=== PATIENT | female | born 1955 | race African-American/Black ===

== ENCOUNTER 2018-04-04 13:00 | Observation (INO) ==
[2018-04-04] MEDS ORDERED: PANTOPRAZOLE 40 MG VIAL IV STA (13:29)
[2018-04-04 13:46] LABS: Basophils % 0.3 % (0.0-0.8); Eosinophils # 0.5 10*3/uL (0.0-0.87); Eosinophils % 7.8 % (0.00-10.9); Hematocrit 41.7 VOL% (35.7-47.0); Hemoglobin 14.1 GM/DL (12.0-16.0); Immature Granulocytes % 0.5 %; Immature Granulocytes Absolute 0.03 #; Lymphocytes # 1.8 10*3/uL (1.4-4.0); Lymphocytes % 28.5 % (21.3-54.2); Mean Corpuscular HGB Conc 33.8 GM/DL (32-36); Mean Corpuscular Hemoglobin 31 PG (27-34); Mean Platelet Volume 10.4 FL (9.6-12.0); Monocytes # 0.6 10*3/uL (0.11-0.8); Monocytes % 9.9 % (1.7-12.7); Neutrophils # 3.4 10*3/uL (1.4-7.4); Platelet Count 186 T/CUMM (130-400); Red Blood Count 4.58 MC/CUMM (3.8-5.5); Red Cell Distribution Width 13.7 % (9.3-17.3); White Blood Count 6.5 T/CUMM (4-12)
[2018-04-04 13:48] LABS: INR 1.1; PT Patient Result 11.4 SECS; Partial Thromboplastin Time 25.9 SECS (0-40)
[2018-04-04 13:59] LABS: Albumin 3.5 G/DL (3.4-5.0); Bilirubin,Total 0.4 MG/DL (0.2-1.0); Calcium 8.5 MG/DL (8.5-10.1); Osmolality,Calculated 279.3 MOS/KG (273-304); Potassium 3.2 MMOL/L (3.5-5.1); Total Protein 7.6 G/DL (6.4-8.3)
[2018-04-04 14:18] LABS: Platelet Estimate Adequate
[2018-04-04] MEDS ORDERED: PROMETHAZINE 25 MG/1 ML VIAL IM PRN (15:43)
[2018-04-04] MEDS ORDERED: ONDANSETRON 4 MG/2 ML VIAL IV PRN (15:43)
[2018-04-04] MEDS ORDERED: POTASSIUM CHLORIDE RIDER 10 MEQ in PREMIX 1 EACH IV PRN (15:48)
[2018-04-04] MEDS ORDERED: MAGNESIUM SULF RIDER 2 GM in PREMIX 1 EACH IV ONE (16:49)
[2018-04-04] MEDS: POTASSIUM CHLORIDE 20 MEQ TABLET PO PRN ×3 (17:11→23:09)
[2018-04-04] MEDS: SODIUM CHLORIDE 0.9% 1,000 ML IV SCH (17:13)
[2018-04-04 21:58] LABS: Hematocrit 39.7 VOL% (35.7-47.0); Hemoglobin 13.4 GM/DL (12.0-16.0)
[2018-04-04] MEDS: traMADol 50 MG TABLET PO SCH (23:09)
[2018-04-04] MEDS: MECLIZINE 25 MG TABLET PO SCH (23:09)
[2018-04-04] MEDS: SIMVASTATIN 20 MG TABLET PO SCH (23:10)
[2018-04-04] MEDS: PANTOPRAZOLE 40 MG VIAL IV SCH (23:10)
[2018-04-05 05:55] LABS: Hematocrit 39.3 VOL% (35.7-47.0); Hemoglobin 12.8 GM/DL (12.0-16.0); Lymphocytes % 32.6 % (21.3-54.2); Mean Corpuscular HGB Conc 32.6 GM/DL (32-36); Mean Corpuscular Hemoglobin 30 PG (27-34); Mean Platelet Volume 10.4 FL (9.6-12.0); Neutrophils % 46.2 % (38.7-73.9); Platelet Count 275 T/CUMM (130-400); Red Blood Count 4.27 MC/CUMM (3.8-5.5); Red Cell Distribution Width 13.9 % (9.3-17.3); White Blood Count 5.6 T/CUMM (4-12)
[2018-04-05 05:56] LABS: Basophils % 0.7 % (0.0-0.8); Eosinophils # 0.5 10*3/uL (0.0-0.87); Eosinophils % 8.8 % (0.00-10.9); Immature Granulocytes % 0.4 %; Immature Granulocytes Absolute 0.02 #; Lymphocytes # 1.8 10*3/uL (1.4-4.0); Monocytes # 0.6 10*3/uL (0.11-0.8); Monocytes % 11.3 % (1.7-12.7); Neutrophils # 2.6 10*3/uL (1.4-7.4)
[2018-04-05 05:58] LABS: Hematocrit 38.7 VOL% (35.7-47.0); Hemoglobin 12.9 GM/DL (12.0-16.0)
[2018-04-05 06:41] LABS: Albumin 3.2 G/DL (3.4-5.0); Bilirubin,Total 0.6 MG/DL (0.2-1.0); Calcium 8.2 MG/DL (8.5-10.1); Osmolality,Calculated 281.1 MOS/KG (273-304); Potassium 3.4 MMOL/L (3.5-5.1); Thyroid Stimulating Hormone 0.232 uIU/ml (0.358-3.74)
[2018-04-05] MEDS ORDERED: amLODIPine 5 MG TABLET PO SCH (09:00)
[2018-04-05 09:31] LABS: Apearance,Urine CLEAR (Clear); Bacteria,Urine Moderate /HPF (Few); Bilirubin,Urine Negative (Negative); Blood, Urine Negative (Negative); Glucose,Urine (UA) Negative (Negative); Ketones,Urine Negative (Negative); Mucus,Urine Occasional /LPF (Occasional); Nitrite,Urine Negative (Negative); Protein,Urine Negative; RBC,Urine <1 /HPF (0-4); Squamous Epithelial Cell,Urine Occasional /HPF (0-10); Urine Color Yellow (Yellow); Urine Specific Gravity 1.016 (1.001-1.035); Urine Urobilinogen < 2.0 EU/DL (0.2-1.0); WBC,Urine 1 /HPF (0-6)
[2018-04-05] MEDS: MECLIZINE 25 MG TABLET PO SCH ×3 (09:51→21:39)
[2018-04-05] MEDS: CHLORTHALIDONE 25 MG TABLET PO SCH (09:52)
[2018-04-05] MEDS: POTASSIUM CHLORIDE 10 MEQ TABLET PO SCH (09:52)
[2018-04-05] MEDS: traMADol 50 MG TABLET PO SCH ×2 (09:52→21:39)
[2018-04-05] MEDS: PANTOPRAZOLE 40 MG VIAL IV SCH ×2 (09:52→21:38)
[2018-04-05] MEDS: ATENOLOL 50 MG TABLET PO SCH (09:52)
[2018-04-05 10:28] LABS: Hematocrit 38.7 VOL% (35.7-47.0); Hemoglobin 12.7 GM/DL (12.0-16.0)
[2018-04-05] MEDS: POTASSIUM CHLORIDE 20 MEQ TABLET PO PRN ×2 (11:29→13:59)
[2018-04-05] MEDS: SODIUM CHLORIDE 0.9% 1,000 ML IV SCH (13:56)
[2018-04-05 15:35] LABS: Hematocrit 39.4 VOL% (35.7-47.0); Hemoglobin 12.8 GM/DL (12.0-16.0)
[2018-04-05 21:11] LABS: Hemoglobin 12.5 GM/DL (12.0-16.0)
[2018-04-05] MEDS: amLODIPine 5 MG TABLET PO SCH (21:39)
[2018-04-05] MEDS: SIMVASTATIN 20 MG TABLET PO SCH (21:39)
[2018-04-06] MEDS ORDERED: PROPOFOL 200 MG/20 ML VIAL IV ONE (10:00)
[2018-04-06] MEDS ORDERED: LIDOCAINE 100 MG/5 ML SYRINGE ONE (10:00)
[2018-04-06] MEDS ORDERED: BISACODYL 5 MG TABLET PO ONE (12:00)
[2018-04-06] MEDS: PANTOPRAZOLE 40 MG VIAL IV SCH ×2 (14:17→21:57)
[2018-04-06] MEDS: CHLORTHALIDONE 25 MG TABLET PO SCH (14:18)
[2018-04-06] MEDS: MECLIZINE 25 MG TABLET PO SCH ×3 (14:18→21:57)
[2018-04-06] MEDS: traMADol 50 MG TABLET PO SCH ×2 (14:19→21:57)
[2018-04-06] MEDS: POTASSIUM CHLORIDE 10 MEQ TABLET PO SCH (14:19)
[2018-04-06] MEDS: ATENOLOL 50 MG TABLET PO SCH (14:19)
[2018-04-06] MEDS: amLODIPine 5 MG TABLET PO SCH ×2 (14:19→21:57)
[2018-04-06] MEDS ORDERED: POLYETHYLENE GLYCOL POWDER 255 GM BOTTLE PO ONE (16:29)
[2018-04-06] MEDS: SODIUM CHLORIDE 0.9% 1,000 ML IV SCH (18:00)
[2018-04-06] MEDS: SIMVASTATIN 20 MG TABLET PO SCH (21:57)
[2018-04-06] MEDS: POTASSIUM CHLORIDE 20 MEQ TABLET PO PRN (21:58)
[2018-04-07 05:52] LABS: Calcium 8.9 MG/DL (8.5-10.1); Osmolality,Calculated 279.1 MOS/KG (273-304); Potassium 3.6 MMOL/L (3.5-5.1)
[2018-04-07] MEDS: SODIUM CHLORIDE 0.9% 1,000 ML IV SCH (06:24)
[2018-04-07] MEDS ORDERED: METOPROLOL TARTRATE 5 MG/5 ML VIAL IV ONE (10:00)
[2018-04-07] MEDS ORDERED: PROPOFOL 200 MG/20 ML VIAL IV ONE (10:00)
[2018-04-07] MEDS: amLODIPine 5 MG TABLET PO SCH (12:53)
[2018-04-07] MEDS: traMADol 50 MG TABLET PO SCH (12:53)
[2018-04-07] MEDS: ATENOLOL 50 MG TABLET PO SCH (12:53)
[2018-04-07] MEDS: POTASSIUM CHLORIDE 10 MEQ TABLET PO SCH (12:53)
[2018-04-07] MEDS: CHLORTHALIDONE 25 MG TABLET PO SCH (12:53)
[2018-04-07] MEDS: PANTOPRAZOLE 40 MG VIAL IV SCH (12:53)
[2018-04-07] MEDS: MECLIZINE 25 MG TABLET PO SCH (12:54)
[2018-04-07 13:11] VITALS: BP 143/81
== END 2018-04-07 14:27 | disposition home or self-care (01) ==
LOC: N.ED 13:00 → SUATTDRO 15:43 → N.EDINP 15:43 → INTOOBSV 15:43 → N.5E 16:18
PROVIDERS: ADMIT Hospitalist; ATTEND Internal Medicine